=== PATIENT | female | born 1965 | race Caucasian/White ===

== ENCOUNTER 2024-10-05 12:53 | Outpatient (AMB) | payer BC, SELFPAY ==
[2024-10-05 12:54] VITALS: BP 148/84; PULSE 80; BMI 25.8
--- NOTE | 2024-10-05 12:54 | A.OFFVIS_ITS ---
Vital Signs 10/05/24 12:54 Height 5 ft 8 in Weight 169 lb 12.095 oz BMI 25.8 BP 148/84 H Blood Pressure Location Lt brachial Position Sitting Pulse 80 Pulse Source Pulse Oximeter Intake Visit Reasons: Hypothyroidism-conf Intake Note: Patient present today for Hypothyroidism office visit. General Accountant Required: No Accompanied by: Self / Same As Patient Allergies No Known Allergies Allergy (Verified 10/05/24 12:58) Medication List - Last Reconciled 10/05/24 by Marilee Bearden MD dexamethasone mg PO levothyroxine 100 mcg PO DAILY omeprazole 20 mg PO DAILY HPI Comments Details: 59-year-old female coming in today for initial evaluation of hypothyroidism. Patient founf right breast mass on palpation in August 2023, susbsequenlty diagnosed with right inflammatory breast Ca. Sep 2023 established with Anna Peg, Nov 02 2023, started q3 weeks for 8 weeks for a clinical trial of [place] immunotherapy trial [place]: A phase II study of neoadjuvant Trastuzumab deruxtecan and Durvalumab? status post right modified radical mastectomy on 04/28/2024 by , , underwent radiation therapy x 6 weeks up until summer 2023, started on immun otherpay while RT was goinng on started on Keytruda (May 31 2024) every 6 weeks from May 2024 to go to October 2024. Also started on chemotherapy (paclitaxel and carboplatin) once a week August 30 2024. She also gets premedication with steroids (dexamethasone) and nausea medications weekly. Denies fatigue . Has constipation. Feels colder than usual. No chnages in mood. No major weight changes recently. Currently on levothyroxine 100 mcg daily. Taking it appropriately. Adherent. Most recent labs09/27/24 TSH 7.69 free t4 1.5 (0.9 -1.7)? Patient denies any difficulty swallowing, pain on swallowing or voice changes or difficulty breathing. Denies having ever used lithium, amiodarone or biotin supplements. Patient denies any family history of thyroid cancer or thyroid disease. Social history Never smoker No drug use No alcohol use Works in [employer] systems Constitutional: no fevers, chills or weight loss HEENT: no changes in vision Cardiac: No chest pain, discomfort or palpitations. Pulmonary: No SOB Physical exam General: sitting comfortably in no acute distress HEENT: normocephalic/atraumatic, moist oral mucosa Neck: supple, symmetrical, no thyromegaly , no dorsocervical or supraclavicular fat pads Cardiac: normal heart sounds Pulm: normal breath sounds B/L, no added breath sounds Abd: not distended, no tenderness Extremities: no edema, no signs of myxedema Neuro: AAO x3, Speech: normal, no facial droop, moving all 4 extremities Labs trend 01/05/24 TSH 0.06 free T4 1.3 01/26/24 TSH 6.41 free t4 1 03/08/24 free t4 0.3 03/29/24 TSH 16.9 7 started on levothyroxine 100 mcg daily free t4 1.3 04/19/24 TSH 1.32 free t4 1.7 05/10/24 TSH 0.9 free t4 1.4 07/05/24 TSH 4.22 free t4 1.5 08/16/24 TSH 1.08 free t4 1.5 09/05/24 TSH 3.94 free t4 1.5 09/27/24 TSH 7.69 free t4 1.4 09/27/24 TSH 7.69 free t4 1.5 (0.9 -1.7) PFSH Medical History (Updated 10/05/24 @ 13:51 by Marilee Bearden MD) Adverse effect of immune checkpoint inhibitor Hypothyroid Surgical History (Updated 10/05/24 @ 12:59 by HIOW[facility] [place]) H/O mastectomy Family History (Updated 10/05/24 @ 13:01 by HIWOT [place]) Mother Heart disease Breast cancer Father Colon cancer Lymphoma Social History (Updated 10/05/24 @ 13:02 by HIWOT [place]) Alcohol intake: current Alcohol intake frequency: former alcohol drinker Patient Tobacco Use Status: Never used Tobacco Physical Exam Vital Signs: Last Vital Signs Pulse 80 10/05/24 12:54 BP 148/84 H 10/05/24 12:54 BMI result Body Mass Index 25.8 Assessment & Plan Assessment & Plan (1) Hypothyroid: Code(s): E03.9 - Hypothyroidism, unspecified Category: Medical Qualifiers: Hypothyroidism type: due to medication Qualified Code(s): E03.2 - Hypothyroidism due to medicaments and other exogenous substances Plan: Patient with a history right inflammatory breast cancer status post neoadjuvant chemo/ immunotherapy, modified radical mastectomy in March 2024, radiation therapy who has subsequently been on immunotherapy and chemotherapy. started on Keytruda (May 31 2024) every 6 weeks from May 2024 to go to October 2024. She was noted to have low TSH in December 2023, subsequently noted to have elevated TSH at 16 in February 2024 at that point she was on tenisha adjuvant chemo/immunotherapy which included Durvalumab. Started on levothyroxine 100 mcg subsequently which she has been taking since then. I explained to the patient that immune checkpoint inhibitors have been known to cause endocrinopathies with PD-1 inhibitors such as pembrolizumab more commonly associated with thyroid dysfunction. Hypothyroidism usually develops between 5 and 9 months after the initiation of immune checkpoint inhibitors. Most people tend to stay hypothyroid, due to underlying autoimmunity though some people revert to being biochemically euthyroid. Most recent TSH from 09/27/2024 elevated at 7.69 with free T4 of 1.5. We will increase her levothyroxine to 112 mcg daily to target to normal TSH. Plan: -increase levothyroxine to 112 mcg daily -repeat TSH, free T4 in 6 weeks -follow up in 3 months (2) Adverse effect of immune checkpoint inhibitor: Code(s): T45.AX5A - Adverse effect of immune checkpoint inhibitors and immunostimulant drugs, initial encounter Category: Medical Qualifiers: Encounter type: initial encounter Qualified Code(s): T45.AX5A - Adverse effect of immune checkpoint inhibitors and immunostimulant drugs, initial encounter Plan: See above Plan I spent 45 minutes in reviewing the record, seeing the patient and documenting in the medical record. Orders: Orders Thyroid Stimulating Hormone 6 Weeks E03.9 - Hypothyroidism, unspecified, T45.AX5A - Adverse effect of immune checkpoint inhibitors and immunostimulant drugs, initial encounter Free T4 (Free Thyroxine) 6 Weeks E03.9 - Hypothyroidism, unspecified, T45.AX5A - Adverse effect of immune checkpoint inhibitors and immunostimulant drugs, initial encounter Medications: New levothyroxine (Synthroid) 112 mcg PO DAILY 30 tabs 6RF Coding Level of Care Code New Pt Level 4 (46779) Diagnoses Hypothyroidism due to medication E03.2 Hypothyroidism type: due to medication Adverse effect of immune checkpoint inhibitor, initial encounter T45.AX5A Encounter type: initial encounter Time Spent (min) 45
== END 2024-10-05 13:49 | disposition home or self-care (01) ==
LOC: HO.ENCR 12:53
PROVIDERS: PCP Registered Nurse; Visit Provider Student in an Organized Health Care Education/Training Program
DX: E03.2 Hypothyroidism due to medicaments and other exogenous substances (principal); T45.AX5A Adverse effect of immune checkpoint inhibitors and immunostimulant drugs, initial encounter
CPT/HCPCS: 99204

== ENCOUNTER → 2024-10-05 12:53 | Outpatient (BNVA) | payer BC, SELFPAY | PROVIDERS: PCP Registered Nurse; Visit Provider Student in an Organized Health Care Education/Training Program ==